=== PATIENT | male | born 1965 | race Caucasian/White ===

== ENCOUNTER 2018-05-06 13:01 | Outpatient (CLI) | payer OTHER ==
[~2018-05-06] VITALS: Ht 185.4 cm; Wt 93.0 kg
== END 2018-05-06 13:07 | disposition home or self-care (01) ==
LOC: PREOP 13:01
PROVIDERS: ATTEND Surgery
DX: Z01.818 Encounter for other preprocedural examination (principal)

== ENCOUNTER 2018-05-11 09:36 | Day surgery (SDC) | payer OTHER ==
[~2018-05-11] VITALS: Ht 185.4 cm; Wt 93.0 kg
[2018-05-11 09:40] VITALS: BP 109/77
--- OUTSIDE RECORDS SUMMARY | 2018-05-11 09:40 | XMS REPORT | Continuity of Care Document ---
Author Author [facility] Organization [facility] Address Unknown Phone Unavailable Allergies Active Description Code Type Severity Reaction Onset Reported/Identified Relationship to Patient Clinical Status Yes No Known Drug Allergies [id number] Drug Allergy Unknown N/A 05/06/2018 Medications There is no data. Problems Date Dx Coded Attending Type Code Diagnosis Diagnosed By 06/10/2014 HOLDEN ALFARO Ot 786.2 01/02/2015 MARLEE RM DO Ot 608.9 03/31/2017 HOLDEN ALFARO Ot 786.2 COUGH 03/31/2017 MARLEE RM DO Ot 608.9 MALE GENITAL DIS NOS 04/16/2017 HOLDEN ALFARO Ot 786.2 COUGH 04/16/2017 MARLEE RM DO Ot 608.9 MALE GENITAL DIS NOS 05/07/2018 GONZALEZ REYNOLDS MD Ot Z01.818 ENCOUNTER FOR OTHER PREPROCEDURAL EXAMIN Procedures There is no data. Results There is no data. Encounters ACCT No. Visit Date/Time Discharge Status Pt. Type Provider Facility Loc./Unit Complaint [id number] 05/06/2018 13:01:00 05/06/2018 13:07:00 DIS Outpatient GONZALEZ REYNOLDS MD [facility] PREOP COLONOSCOPY [id number] 12/06/2014 15:05:00 12/06/2014 23:59:59 CLS Outpatient MARLEE RM DO [facility] RAD LEFT TESTICULAR LESION [id number] 06/09/2014 12:29:00 06/09/2014 23:59:59 CLS Outpatient HOLDEN ALFARO [facility] RAD COUGH [id number] 05/11/2018 11:15:00 PEN Preadmit GONZALEZ REYNOLDS MD [facility] ENDO SCREENING
--- OUTSIDE RECORDS SUMMARY | 2018-05-11 09:40 | XMS REPORT | Clinical Summary ---
Author Author [facility] Organization [facility] Address Unknown Phone Unavailable Care Team Providers Care Auto Travel Counselor Name Role Phone Santiago Landaverde MD 21 Doctor, Miscellaneous PCP Unavailable Source Comments Some departments are not documenting in the electronic medical record. If you do not see the information that you expected, contact Release of Information in the Health Information Management department at [phone] for further assistance in locating additional records.[facility] Allergies Not on File Medications End Date Status Medication Sig Dispensed Refills Start Date Active clotrimazole-betamethason Apply to 15 g 2 e (LOTRISONE) 1-0.05 % external 6 topical creamIndications: perianal area Perianal pruritus PRN. Use intermittentl y. Up to 2-3 times per week. Active Problems Problem Noted Date Pruritus ani 03/10/2016 Social History Date Tobacco Use Types Packs/Day Years Used Unknown If Ever Smoked Smokeless Tobacco: Chew Current User Tobacco Cessation: Ready to Quit: Yes Alcohol Use Drinks/Week oz/Week Comments Yes 6 Cans of 3.6 beer Sex Assigned at Date Recorded Not on file Industry Job Start Date Occupation Not on file Not on file Not on file Travel End Travel History Travel Start No recent travel history available. Last Filed Vital Signs Time Taken Vital Sign Reading 03/08/2016 10:01 AM CDT Blood Pressure 135/60 03/08/2016 10:01 AM CDT Pulse 62 03/08/2016 10:01 AM CDT Temperature 36.6 C (97.8 F) 03/08/2016 10:01 AM CDT Respiratory Rate 17 03/08/2016 10:01 AM CDT Oxygen Saturation 100% - Inhaled Oxygen - Concentration 03/08/2016 10:01 AM CDT Weight 90.5 kg (199 lb 9.6 oz) - Height - - Body Mass Index - Plan of Treatment Health Maintenance Due Date Last Done Comments PHYSICAL (COMPREHENSIVE) 1974 EXAM HIV SCREENING 1982 DTAP/TDAP VACCINES (1 - 1985 Tdap) COLORECTAL CANCER 2017 SCREENING SHINGLES RECOMBINANT 2017 VACCINE (1 of 2) INFLUENZA VACCINE 12/03/2017 04/04/2015 (Previously completed) Results Not on filefrom Last 3 Months Insurance Payer Benefit Subscriber ID Type Phone Address Plan / Group [facility] xxxxxxxxx Indemnity CHOICE/CHO ICE PLUS Advance Directives Patient has advance care planning documents on file. For more information, please contact: [facility] [address] [place] [address]
[2018-05-11] MEDS ORDERED: NS IV 500 ML 500 ML ONE (09:43)
--- NOTE | 2018-05-11 09:43 | Conscious Sedation/ASA ---
Conscious Sedation Pre-Proced Time 09:43 ASA Score 1 For ASA 3 and 4: Consider anesthesia and medical clearance. Also, for patients with a history of failed moderate sedation consider anesthesia. Airway Lungs Heart ASA score ASA 1: a normal healthy patient ASA 2: a patient with a mild systemic disease (mid diabetes, controlled hypertension, obesity ASA 3: a patient with a severe systemic disease that limits activity (angina , COPD, prior Myocardial infarction) ASA 4: a patient with an incapacitating disease that is a constant threat to life (CHF, renal failure) ASA 5: a moribund patient not expected to survive 24 hrs. (ruptured aneurysm) ASA 6: a declared brain patient whose organs are being harvested. For emergent operations, add the letter E after the classification Mallampati Classification Grade 1 Sedation Plan Discussed options with patient/fam The patient is an appropriate candidate to undergo the planned procedure, sedation, and anesthesia. The patient immediately re-assessed prior to indication. GONZALEZ REYNOLDS MD May 11, 2018 09:43
--- NOTE | 2018-05-11 09:43 | History & Physicial ---
History of Present Illness History of Present Illness Reason for visit/HPI To undergo screening colonoscopy Date of Admission 05/11/18 Date Seen by a Provider: May 11, 2018 Time Seen by a Provider: 09:42 I consulted on this patient on 05/11/18 09:41 Attending Physician Gonzalez Camargo MD Admitting Physician Ama Mensah DO Consult Allergies and Home Medications Allergies Coded Allergies: No Known Drug Allergies (Unverified , 05/06/18) Home Medications No Active Prescriptions or Reported Meds Patient Home Medication List Home Medication List Reviewed: Yes Past Pzgoqhz-Iavbss-Wgiatf Hx Patient Social History Marrital Status: Employed/Student: employed Recent Foreign Travel: No Contact w/other who traveled: No Recent Hopitalizations: No Seasonal Allergies Seasonal Allergies: No Surgeries Yes (leg fx, jaw fx, hemorrhoidectomy) Vasectomy Respiratory No Cardiovascular No Neurological No Genitourinary No Gastrointestinal No Musculoskeletal No Endocrine History of Endocrine Disorders: No HEENT History of HEENT Disorders: No Cancer No Psychosocial History of Psychiatric Problem: No Integumentary History of Skin or Integumenta: No Blood Transfusions History of Blood Disorders: No Review of Systems Constitutional: no symptoms reported EENTM: no symptoms reported Respiratory: no symptoms reported Gastrointestinal: no symptoms reported Genitourinary: no symptoms reported Musculoskeletal: no symptoms reported Skin: no symptoms reported Psychiatric/Neurological: No Symptoms Reported Physical Exam Vital Signs Capillary Refill : Height, Weight, BMI Height: 6'1.00" Weight: 205lbs. 0.0oz. [id number]; 27.1 BMI Method: General Appearance: No Apparent Distress Neck: Normal Inspection Respiratory: Lungs Clear Cardiovascular: Regular Rate, Rhythm Gastrointestinal: Non Tender, Soft Rectal: Deferred Neurologic/Psychiatric: Alert, Oriented x3 Skin: Warm/Dry Assessment/Plan Assessment and Plan Gentleman to undergo screening colonoscopy. Discussed in detail. Admission Diagnosis Admission Status: Other (Outpt Proc) GONZALEZ CAMARGO MD May 11, 2018 09:43
[2018-05-11] MEDS ORDERED: NS IV 500 ML 500 ML IV PRN (10:06)
[2018-05-11] MEDS ORDERED: fentaNYL INJECTION 100 MCG/2 ML AMP IVP ONE (10:15)
[2018-05-11] MEDS ORDERED: MIDAZOLAM 2 MG/2 ML (VERSED) VIAL IVP ONE (10:15)
[2018-05-11] MEDS ORDERED: MIDAZOLAM 2 MG/2 ML (VERSED) VIAL ONE ×3 (10:26)
[2018-05-11] MEDS ORDERED: fentaNYL INJECTION 100 MCG/2 ML AMP ONE (10:26)
--- NOTE | 2018-05-11 10:57 | Endo Procedure Record ---
Endo Procedure Report Date of Procedure Last Colonoscopy: Yes May 11, 2018 Surgeon (s) GONZALEZ REYNOLDS MD Post Procedure/Op Diagnosis 1. 2 mm polyp at the distal sigmoid colon 2. 2 mm, superficial ulcer at the cecum of unknown significance Procedure Performed Colonoscopy to cecum Snare polypectomy Biopsy of ulcer at the cecum Description of Procedure Anesthesia Type: Conscious Sedation Specimen(s) collected/removed Polyp from the sigmoid colon. Tissue from the cecal ulcer Description of the Procedure Indication for the procedure: This gentleman came in for screening colonoscopy. Informed consent was obtained after reviewing the procedure in detail. Description of the procedure: He was placed in left lateral decubitus position and his vital signs were monitored. Conscious sedation was achieved using Versed and fentanyl. Examination of the perianal area revealed a very small skin tag. There was no fissure. The colonoscope was then introduced into the rectum and advanced all the way up to the cecum. The quality of bowel preparation was excellent. The scope was then withdrawn slowly and the mucosa examined in a systematic fashion. Findings: 1. 2 mm polyp at the distal sigmoid colon, that was snared and retrieved 2. 3 mm, superficial ulcer at the cecum, of unknown significance. Biopsy was obtained. He tolerated the procedure well and was taken back to the nursing area in a stable condition. Impression: Screening colonoscopy. Sigmoid polyp excised. Incidental, shallow ulcer at the cecum, biopsy pending. Recommend surveillance colonoscopy in 5 years. Copy Copies To 1: GENEVIEVE MENDEZ XAVIER M MD May 11, 2018 10:57
--- NOTE | 2018-05-11 10:58 | Discharge Inst-Simple/Standard ---
Discharge Inst-Standard Discharge Medications New, Converted or Re-Newed RX: Other Patient Instructions/Follow Up Plan of Care/Instructions/FU: Repeat colonoscopy in 5 years. We will call once biopsy from the tissue becomes available Activity as Tolerated: Yes Discharge Diet: No Restrictions GONZALEZ REYNOLDS MD May 11, 2018 10:58
[2018-05-11 11:05] VITALS: BP 113/68
[2018-05-11 11:40] VITALS: BP 110/65
[2018-05-11 12:08] VITALS: BP 110/65
== END 2018-05-11 12:00 | disposition home or self-care (01) ==
LOC: ENDO 09:36
PROVIDERS: ATTEND Surgery
DX: Z12.11 Encounter for screening for malignant neoplasm of colon (principal); D12.5 Benign neoplasm of sigmoid colon; K63.3 Ulcer of intestine

== ENCOUNTER → 2022-05-31 | Outpatient (CLI) | payer OTHER ==
--- NOTE | 2022-05-31 08:26 | Diagnostic Imaging Report ---
PROCEDURE: US Hepatic (Liver). TECHNIQUE: Multiple Real-time grayscale images were obtained over the right upper quadrant in various projections. INDICATION: Elevated liver enzymes. FINDINGS: The liver parenchyma is homogeneous. The portal vein is patent with hepatopetal flow. The gallbladder is clear with no stones or wall thickening. The common duct is not dilated. The visualized portions of the pancreas are unremarkable. The aorta is obscured by bowel gas. The IVC is patent and normal. The right kidney measures 11 cm in length and appears normal. There is no ascites. IMPRESSION: Unremarkable liver ultrasound. Dictated by: Dictated on workstation # [id number]
== END ==
LOC: RAD 07:44
PROVIDERS: ATTEND Nurse Practitioner Family
DX: R94.5 Abnormal results of liver function studies (principal)
CPT/HCPCS: 76705